=== PATIENT | female | born 1980 | race Caucasian/White ===

== ENCOUNTER → 2018-02-23 | Day surgery (SDC) | payer OTHER ==
[~2018-02-23] VITALS: Ht 167.6 cm; Wt 74.8 kg
[2018-02-23 03:08] LABS: ABSOLUTE BASOPHIL COUNT 0 /CUMM (0.0-0.2); ABSOLUTE EOSINOPHIL COUNT 0 /CUMM (0.0-0.7); ABSOLUTE LYMPH COUNT 1.2 /CUMM (1.2-3.4); ABSOLUTE MONOCYTE COUNT 0.8 /CUMM (0.10-0.60); BASOPHIL % 0.2 % (0.0-2.0); EOSINOPHIL % 0.2 % (0-5); GRANULOCYTE % 86.5 % (42.2-75.2); HEMATOCRIT 38.6 % (37-47); MEAN CORPUSCULAR HGB 30.5 PG (27.0-31.0); MEAN CORPUSCULAR VOLUME 89.6 FL (81.0-99.0); MEAN PLATELET VOLUME 10.2 FL (7.4-10.4); PLATELET COUNT 222 /CUMM (130-400); RBC DISTRIBUTION WIDTH 12.7 % (11.5-14.5); RED BLOOD CELL CT 4.31 /CUMM (4.20-5.40)
--- NOTE | 2018-02-23 04:46 | ED GI/GU/ABDOMINAL COMPLAINT ---
History of Present Illness General Chief Complaint: Abdominal Pain/Flank Pain Stated Complaint: "ABD PAIN, NAUSEA" Source: patient, family, old records Exam Limitations: no limitations Vital Signs & Intake/Output Vital Signs & Intake/Output Vital Signs Date Time Temp Pulse Resp B/P B/P Pulse O2 O2 Flow FiO2 Mean Ox Delivery Rate 02/23 0640 98.6 76 18 110/63 97 Room Air 02/23 0209 98.0 62 18 106/70 98 Room Air Allergies Coded Allergies: morphine (Mild, GI UPSET 02/23/18) codeine (Intermediate, HALLUCINATIONS 02/23/18) Triage Note: PT TO ED C/O SUDDEN ONSET EPIGASTRIC PAIN THAT NOW GOES TO BACK, CONSTANT FOR 14 HRS. Triage Nurses Notes Reviewed? yes LMP (ages 10-50): unknown ? n Is pt currently ? No Onset: Morning Duration: hour(s):, constant, continues in ED, getting worse Timing: recent history Quality/Severity: aching, severe Location: epigastric Radiation: back Activities at Onset: rest Prior Abdominal Problems: none Past Sexual History: Unobtainable at this time Modifying Factors: Worsens With: eating. Associated Symptoms: abdominal pain, loss of appetite, nausea/vomiting HPI: 14 hours prior to admission patient complains of constant bandlike increasing epigastric pain radiating to the lower quadrants associated with anorexia nausea worsened with eating. She denies fever chills vomiting diarrhea chest pain cough shortness of breath headache dysuria rash bleeding. Past History Travel History Traveled to [place] past 21 day No Medical History Any Pertinent Medical History? see below for history Neurological: NONE EENT: NONE Cardiovascular: NONE Respiratory: NONE Gastrointestinal: NONE Hepatic: NONE Renal: NONE Musculoskeletal: NONE Psychiatric: NONE Endocrine: NONE Blood Disorders: NONE Cancer(s): NONE WATER PIPE INSTALLER/Reproductive: PRE ECLAMPSIA Surgical History Surgical History: Psychosocial History What is your primary language Peruvian Tobacco Use: Never used ETOH Use: occasional use Illicit Drug Use: denies illicit drug use Family History Hx Contributory? No Review of Systems Review of Systems Constitutional: Reports: no symptoms. EENTM: Reports: no symptoms. Respiratory: Reports: no symptoms. Cardiovascular: Reports: no symptoms. GI: Reports: see HPI, abdominal pain, nausea. Genitourinary: Reports: no symptoms. Musculoskeletal: Reports: no symptoms. Skin: Reports: no symptoms. Neurological/Psychological: Reports: no symptoms. Hematologic/Endocrine: Reports: no symptoms. Immunologic/Allergic: Reports: no symptoms. All Other Systems: Reviewed and Negative Physical Exam Physical Exam General Appearance: well developed/nourished, alert, awake, anxious, severe distress, obese Head: atraumatic, normal appearance Eyes: Bilateral: normal appearance, PERRL, EOMI, normal inspection. Ears, Nose, Throat, Mouth: hearing grossly normal, moist mucous membrane Neck: normal inspection, supple, full range of motion, normal alignment Respiratory: normal breath sounds, chest non-tender, no respiratory distress, quiet respiration, lungs clear Cardiovascular: regular rate/rhythm, normal peripheral pulses, norml femoral pulses equa Peripheral Pulses: 4+ carotid (R), 4+ carotid (L) Gastrointestinal: normal bowel sounds, soft, no organomegaly, tenderness Back: normal inspection, normal range of motion Extremities: normal range of motion, no ligament instability Neurologic/Psych: no motor/sensory deficits, awake, alert, oriented x 3, normal gait, normal mood/affect, 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 No Sepsis Present: No Sepsis Focused Exam Completed? No Progress Differential Diagnosis: appendicitis, biliary colic, bowel obstruction Plan of Care: Orders Procedure Date/time Status URINALYSIS 02/24 240 Complete LIPASE 02/24 240 Complete LACTIC ACID 02/24 240 Complete HUMAN BETA HCG SCREEN 02/24 240 Complete COMPREHENSIVE METABOLIC PANEL 02/24 240 Complete CBC WITHOUT DIFFERENTIAL 02/24 240 Complete AMYLASE 02/24 240 Complete Laboratory Tests 02/23/18 0540: Lactic Acid Cancelled 02/23/18 0240: Anion Gap 11, Estimated GFR > 60, BUN/Creatinine Ratio 15.0, Glucose 148 H, Lactic Acid 0.9, Calcium 9.7, Total Bilirubin 0.8, AST 20, ALT 20, Alkaline Phosphatase 65, Total Protein 7.3, Albumin 4.5, Globulin 2.8, Albumin/Globulin Ratio 1.6, Amylase 40, Lipase 40, Total Beta HCG NEGATIVE, CBC w Diff NO MAN DIFF REQ, RBC 4.31, MCV 89.6, MCH 30.5, MCHC 34.0, RDW 12.7, MPV 10.2, Gran % 86.5 H, Lymphocytes % 7.9 L, Monocytes % 5.2, Eosinophils % 0.2, Basophils % 0.2, Absolute Granulocytes 13.0 H, Absolute Lymphocytes 1.2, Absolute Monocytes 0.8 H, Absolute Eosinophils 0, Absolute Basophils 0, Urinalysis HEAVY H, Urine Color YEL, Urine Clarity CLDY H, Urine pH 7.5, Ur Specific [place] 1.025, Urine Protein NEG, Urine Ketones >=80, Urine Nitrite NEG, Urine Bilirubin NEG, Urine Urobilinogen 1.0, Ur Leukocyte Esterase NEG, Ur Microscopic SEDIMENT EXAMINED, Urine RBC 1-3, Ur Epithelial Cells FEW, Urine Bacteria MOD H, Urine Hemoglobin SMALL H, Urine Glucose NEG Diagnostic Imaging: Viewed by Me: CT Scan. Discussed w/RAD: CT Scan. Radiology Impression: Appendicitis and appendicolith without drainable fluid collections. Initial ED EKG: none Departure Departure Time of Disposition: 657 Disposition: STILL A PATIENT Condition: Fair Clinical Impression Primary Impression: Appendicitis, acute Referrals: Patient Has No Primary Care Dr (PCP/Family) Departure Forms: Customer Survey General Discharge Information OR/GI Note Spoke With: Gigi BONILLA,Jay Lara ED Treatment Decision: SALUODAISYLAURA requires urgent operative management or an emergent procedure that cannot be performed in the Emergency Room setting. Transport To: [facility] ED Treatment Decision: SAULODAISYLAURA requires urgent operative management or an emergent procedure that cannot be performed in the Emergency Room setting. Transport To: [facility]
--- NOTE | 2018-02-23 05:08 | CT SCAN REPORT ---
EXAMINATION: CT ABDOMEN AND PELVIS WITH CONTRAST CLINICAL INFORMATION: Epigastric pain. COMPARISON: None. TECHNIQUE: Contiguous axial thin section helical images of the abdomen and pelvis were performed following the administration of 95 mL of intravenous Optiray 320. The data set was reformatted in the coronal and sagittal planes and reviewed on an independent workstation. DLP: 395 mGy-cm. FINDINGS: There is mild dependent bibasilar atelectasis. The visualized lung bases are otherwise clear. The visualized portions of the heart are unremarkable. The liver is of normal size and attenuation without focal lesions nor intrahepatic biliary ductal dilation. A normal gallbladder is identified. There is no wall thickening or discernible pericholecystic fluid. The spleen, pancreas, adrenal glands are unremarkable. Both kidneys are of normal size and attenuation without hydronephrosis or nephrolithiasis. Within the upper pole of the left kidney is a low-attenuation focus measuring 5 mm which could correspond to a cyst or angiomyolipoma. Following the administration of IV contrast, prompt symmetric nephrograms are displayed. There is no abdominal free fluid. There is neither mesenteric nor retroperitoneal lymphadenopathy. There is thickening to the distal aspect and tip of the appendix measuring up to 10 mm with wall enhancement. There is mild adjacent fat stranding. There is an approximately 5 mm appendicolith. Otherwise, unremarkable unopacified loops of small and large bowel are identified. There is no pelvic free fluid. The urinary bladder is unremarkable. There is neither pelvic nor inguinal lymphadenopathy. Bone windows: Neither sclerotic nor lytic bone lesions are identified. IMPRESSION: Appendicitis and appendicolith without drainable fluid collections.
--- NOTE | 2018-02-23 08:15 | PN- Student ---
Rose Du 02/23/18 0737: Subjective Subjective: CC: abd pain Source: Patient, reliable. Accompanied by HPI: Ms. Ralph is a 37 yo female presenting w/ 1 day hx of abd pain that began at 12pm in the epigastrum, was diffuse overnight and is now localized to the RLQ. Pain is 10/10, began sharp and now is dull. The pain is exacerbated by eating and movement, relieved by avoiding movement. Pt has not had similar pain before and endorses reduced appetite and nausea. Pt denies pain w/ urination, diarrhea, recent changes in diet or bm, fever, sob, or chest pain. Pt denies hx of adverse rxn to anesthesia, dvt, or pe. Pertinant ROS as per HPI. Inpatient meds: NS bolus, zofran 4 mg, toradol 30 mg @ 3:42am. Ampicllin 3000mg IV Meds: none Allergies: morphine (GI upset), cefipime (hallucination) PMH: vaginal delivery (2012), (2014) cx by pre-eclampsia post- Last menstrual period: last week, regular periods SH: denies smoking or recreation drug use, drinks socially FH: denies fhx of IBD, colorectal ca, ovarian ca, adverse rxn to anesthesia or bleeding/clotting disorders Objective Objective: Laboratory Tests 02/23/18 0540: Lactic Acid Cancelled 02/23/18 0240: Anion Gap 11, Estimated GFR > 60, BUN/Creatinine Ratio 15.0, Glucose 148 H, Lactic Acid 0.9, Calcium 9.7, Total Bilirubin 0.8, AST 20, ALT 20, Alkaline Phosphatase 65, Total Protein 7.3, Albumin 4.5, Globulin 2.8, Albumin/Globulin Ratio 1.6, Amylase 40, Lipase 40, Total Beta HCG NEGATIVE, CBC w Diff NO MAN DIFF REQ, RBC 4.31, MCV 89.6, MCH 30.5, MCHC 34.0, RDW 12.7, MPV 10.2, Gran % 86.5 H, Lymphocytes % 7.9 L, Monocytes % 5.2, Eosinophils % 0.2, Basophils % 0.2, Absolute Granulocytes 13.0 H, Absolute Lymphocytes 1.2, Absolute Monocytes 0.8 H, Absolute Eosinophils 0, Absolute Basophils 0, Urinalysis HEAVY H, Urine Color YEL, Urine Clarity CLDY H, Urine pH 7.5, Ur Specific [place] 1.025, Urine Protein NEG, Urine Ketones >=80, Urine Nitrite NEG, Urine Bilirubin NEG, Urine Urobilinogen 1.0, Ur Leukocyte Esterase NEG, Ur Microscopic SEDIMENT EXAMINED, Urine RBC 1-3, Ur Epithelial Cells FEW, Urine Bacteria MOD H, Urine Hemoglobin SMALL H, Urine Glucose NEG Orders Procedure Date/time Status URINALYSIS 02/24 240 Complete LIPASE 02/24 240 Complete LACTIC ACID 02/24 240 Complete HUMAN BETA HCG SCREEN 02/24 240 Complete COMPREHENSIVE METABOLIC PANEL 02/24 240 Complete CBC WITHOUT DIFFERENTIAL 02/24 240 Complete AMYLASE 02/24 240 Complete Vital Signs Date Time Temp Pulse Resp B/P B/P Pulse O2 O2 Flow FiO2 Mean Ox Delivery Rate 02/23 0745 98.5 66 16 100/56 97 Room Air 02/23 0640 98.6 76 18 110/63 97 Room Air 02/23 0209 98.0 62 18 106/70 98 Room Air B-hCG neg LA cancelled CT abd non-contrast (02/23) APPENDICITIS W/ FECOLITH, 10MM WALL ENHANCEMENT OF APPENDIX, FAT STANDING, NO EVIDENCE OF PERFORATION OR FREE AIR PE: Gen: middle -aged female lying in bed, aox4, nad CV: RRR, s1 and s2 crisp, no m/r/g Resp: mild respiratory effort, vesicular b/l, no w/r/r Abd: ND, suprappubic abd scar, well-healed, NABS, tender w/ guarding at epigastrum and RLQ, no rebound, neg psoas and obturator sign Ext: +2 dp pulses b/l, no pedal edema Assessment/Plan Assessment: 37 yo female presents w/ 1 d of RLQ pain w/ PE, leukocytosis, and abd CT c/w acute appendicitis Plan: NPO, last meal was 5pm last night Obtain consent Cont. NS IVF Cont. IV ampicillin To OR for appendectomy Jay Yu MD 02/23/18 1044: Attending MD Review Statement Attending Sign Off Other Findings: agree with student note.
[2018-02-23 08:48] VITALS: BP 103/59
--- NOTE | 2018-02-23 10:37 | History & Physical Pre-Op ---
General Information and HPI History of Present Illness: HPI: Ms. Ralph is a 37 yo female presenting w/ 1 day hx of abd pain that began at 12pm in the epigastrum, was diffuse overnight and is now localized to the RLQ. Pain is 10/10, began sharp and now is dull. The pain is exacerbated by eating and movement, relieved by avoiding movement. Pt has not had similar pain before and endorses reduced appetite and nausea. Allergies/Medications Allergies: Coded Allergies: morphine (Mild, GI UPSET 02/23/18) codeine (Intermediate, HALLUCINATIONS 02/23/18) Home Med list No Known Home Medications Past History Medical History Neurological: NONE EENT: NONE Cardiovascular: NONE Respiratory: NONE Gastrointestinal: NONE Hepatic: NONE Renal: NONE Musculoskeletal: NONE Psychiatric: NONE Endocrine: NONE Blood Disorders: NONE Cancer(s): NONE MARKETING PLANNING MANAGER/Reproductive: PRE ECLAMPSIA Surgical History Pertinent Surgical History: Past Family/Social History Psychosocial History Smoking Status: Never Smoked ETOH Use: occasional use Illicit Drug Use: denies illicit drug use Review of Systems Review of Systems: Pt denies pain w/ urination, diarrhea, recent changes in diet or bm, fever, sob, or chest pain. Pt denies hx of adverse rxn to anesthesia, dvt, or pe. remainder 12 points negative. Exam & Diagnostic Data Last 24 Hrs of Vital Signs/I&O Vital Signs Date Time Temp Pulse Resp B/P B/P Pulse O2 O2 Flow FiO2 Mean Ox Delivery Rate 02/23 0848 97.1 64 18 103/59 98 Room Air 02/23 0745 98.5 66 16 100/56 97 Room Air 02/23 0640 98.6 76 18 110/63 97 Room Air 02/23 0209 98.0 62 18 106/70 98 Room Air Intake & Output 02/23 1600 02/23 0800 02/23 0000 Intake Total 1000 Output Total Balance 1000 Intake, IV 1000 Patient 165 lb Weight Weight Reported by Patient Measurement Method Physical Exam: PE: Gen: middle -aged female lying in bed, aox4, nad CV: RRR, s1 and s2 crisp, no m/r/g Resp: mild respiratory effort, vesicular b/l, no w/r/r Abd: ND, suprappubic abd scar, well-healed, NABS, tender w/ guarding at epigastrum and RLQ, no rebound, neg psoas and obturator sign Ext: +2 dp pulses b/l, no pedal edema Last 24 Hrs of Labs/Terrance: Laboratory Tests 02/23/18 0540: Lactic Acid Cancelled 02/23/18 0240: Anion Gap 11, Estimated GFR > 60, BUN/Creatinine Ratio 15.0, Glucose 148 H, Lactic Acid 0.9, Calcium 9.7, Total Bilirubin 0.8, AST 20, ALT 20, Alkaline Phosphatase 65, Total Protein 7.3, Albumin 4.5, Globulin 2.8, Albumin/Globulin Ratio 1.6, Amylase 40, Lipase 40, Total Beta HCG NEGATIVE, CBC w Diff NO MAN DIFF REQ, RBC 4.31, MCV 89.6, MCH 30.5, MCHC 34.0, RDW 12.7, MPV 10.2, Gran % 86.5 H, Lymphocytes % 7.9 L, Monocytes % 5.2, Eosinophils % 0.2, Basophils % 0.2, Absolute Granulocytes 13.0 H, Absolute Lymphocytes 1.2, Absolute Monocytes 0.8 H, Absolute Eosinophils 0, Absolute Basophils 0, Urinalysis HEAVY H, Urine Color YEL, Urine Clarity CLDY H, Urine pH 7.5, Ur Specific [place] 1.025, Urine Protein NEG, Urine Ketones >=80, Urine Nitrite NEG, Urine Bilirubin NEG, Urine Urobilinogen 1.0, Ur Leukocyte Esterase NEG, Ur Microscopic SEDIMENT EXAMINED, Urine RBC 1-3, Ur Epithelial Cells FEW, Urine Bacteria MOD H, Urine Hemoglobin SMALL H, Urine Glucose NEG Diagnostic Data Other Results CT scan of the abdomen pelvis images were personally reviewed. Findings are that of fecalith in the appendix with periappendiceal inflammatory changes. There is no free fluid no free air. Assessment/Plan Assessment/Plan: This is a healthy 37-year-old woman who has progressive abdominal pain and right lower quadrant tenderness consistent with acute appendicitis. CT scan performed confirms a diagnosis. Plan will be to treat her with IV broad-spectrum antibiotics followed by prompt laparoscopic appendectomy. Patient is informed the risk of the operation including bleeding, infection and agrees to proceed. As Ranked By This Provider Problem List: 1. Appendicitis, acute
--- NOTE | 2018-02-23 10:40 | Operative Report ---
Operative/Inv Procedure Report Surgery Date: 02/23/18 Name of Procedure: Laparoscopic appendectomy Pre-Operative Diagnosis: Acute appendicitis Post-Operative Diagnosis: Same Estimated Blood Loss: scant Surgeon/Heel Coverer Machine Operator: Jay Yu MD/Renetta GOOD Anesthesia: general endotracheal tube Specimens: Appendix Operative Indication: 37-year-old healthy woman presents with progressive abdominal pain with right lower quadrant peritonitis. CT scan confirms a diagnosis of acute appendicitis. She presents for emergent resection Operative/Procedure Note Note: After consent patient is brought to the operating room and laid supine. General anesthesia was obtained his abdomen was prepped and draped. Skin above the umbilicus was after local anesthesia a curvilinear incision made sharply. We dissected through subcutaneous tissues tissues bluntly and identified the fascia. It was grasped with Mary Kate's and a fasciotomy created sharply. The peritoneum was entered sharply and a blunt Read port was placed. Pneumoperitoneum was achieved. 2, 5 mm ports were placed in the suprapubic region and left lower quadrant, after local anesthesia was instilled and under direct vision the camera. Patient placed in Trendelenburg and rotated towards the left. The abdomen was explored. There was an inflamed but not perforated appendix in the right lower quadrant. The distal portion of it was acutely inflamed and the proximal portion was supple. The base was grasped with a Maranda and the peritoneum laterally taken down with cautery to allow mobilization. A window in the mesentery was then developed with a [place] dissector. The mesentery and base were then sequentially divided with Endo GEORGETTE valladares loads. The appendix was placed in an Endo Catch bag and cinched up. The right lower quadrant was then suction irrigated. Hemostasis was adequate. We suction irrigated the pelvis and right upper quadrant as well. Reinspection of the staple line revealed hemostasis without evidence for complications. The ports were then removed and gas evacuated. The appendix passed off the field. The fascia was closed 0 Vicryl suture. Skin incisions closed with 4-0 Vicryl. Steri-Strips and sterile dressing applied. Sponge and needle counts are correct
== END ==
LOC: ERH 01:36 → ER-OR 01:41 → STS 08:47
PROVIDERS: Emergency Medicine
DX: K35.80 Unspecified acute appendicitis (principal); R10.13 Epigastric pain; R11.0 Nausea
CPT/HCPCS: 74177; 81001; 88304; 96374; 96375; C9290; J0131; J1885; J2250; J2405; J3490